=== PATIENT | female | born 1965 | race Caucasian/White ===

== ENCOUNTER 2016-09-17 13:39 | Emergency (ER) | payer MEDICARE, MEDICAID ==
[2016-09-17 13:50] VITALS: BP 145/78
--- NOTE | 2016-09-17 13:53 | ERNOTE ---
Upper Extremity HPI - General Extremities Pain Location: shoulder: left Time Seen by Provider: 09/17/16 13:42 Source: patient Exam Limitations: no limitations - Immun/Allergies/Home Medications Immunizations: IMMUNIZATION HX Immunizations Up to Date Yes History of Influenza Vaccine Yes Hx Pneumococcal Vaccination Yes Allergies/Adverse Reactions: Allergies Allergy/AdvReac Type Severity Reaction Status Date / Time erythromycin base Allergy Verified 12/25/14 09:19 [Erythromycin Base] propranolol Allergy Verified 12/25/14 09:19 Sulfa (Sulfonamide Allergy Verified 12/25/14 09:19 Antibiotics) topiramate [From Topamax] Allergy Verified 12/25/14 09:19 Home Medications: HOME MEDICATIONS Esomeprazole Magnesium [Nexium 24Hr] 10 mg PO DAILY 06/23/14 [Last Taken ] Etanercept [Enbrel] 25 mg SQ Q3D 06/23/14 [Last Taken Unknown] Felodipine [Felodipine ER] 10 mg PO DAILY 06/23/14 [Last Taken 06/23/14] Leflunomide 10 mg PO DAILY 06/23/14 [Last Taken 06/23/14] Nabumetone [Relafen] 200 mg PO BID 06/23/14 [Last Taken 06/23/14] Calcium Carbonate/Vitamin D3 [Calcium 600 + D Tablet] 1 each PO DAILY 12/25/14 [ Last Taken Unknown] Calcium Citrate 200 mg PO DAILY 12/25/14 [Last Taken Unknown] Cephalexin Monohydrate [Keflex] 500 mg PO QID #40 cap 12/25/14 [Last Taken Unknown] Nonestrodone 12/25/14 [Last Taken Unknown] oxyCODONE HCL/ACETAMINOPHEN [Percocet 5 MG/325 MG] 1 tab PO Q4H PRN #20 tab [Last Taken Unknown] - History of Present Illness Narrative: Patient has pain in her left shoulder since playing a [employer] fitness game with her daughter. She denies any fall or acute injury. She has had juvenile rheumatoid arthritis since age 4. her other joint have only baseline pain Date (Duration): 09/15/16 Location of Incident: home Method of Injury: Reports: no apparent injury Loss of Consciousness: Reports: no loss of consciousness Review of Systems - Review of Systems Constitutional: Absent: recent illness, fever, chills Respiratory: Absent: shortness of breath Cardiology: Absent: chest pain, palpitations Gastrointestinal/Abdominal: Absent: nausea, vomiting, abdominal pain Genitourinary: Present: no symptoms reported Musculoskeletal: Present: See HPI Neurological: Absent: weakness, numbness - Patient's Past Medical History Patient History - Medical: Rheumatoid Arthritis Patient History - Cardiac/Respiratory: Hypertension Patient History - Cancer: No Hx of Cancer Patient History - Surgical Procedures: Orthopedic Patient History - Other: None LMP (females 10-50): Menopausal - Social History Living Situations: home Abuse History: No History of abuse Psych History: No pertinent hx Smoking Status: Never smoker Alcohol Use: occasionally Drug Use: none - Immunizations Immunizations Up to Date: Yes Hx Pneumococcal Vaccination: Yes History of Influenza Vaccine: Yes Physical Exam - Physical Exam General Appearance: Present: wd/wn, alert, no apparent distress Neck: Present: normal inspection, nontender, limited range of motion Respiratory: Present: no respiratory distress, normal breath sounds, no accessory muscle use, lungs clear Cardiovascular/Chest: Present: regular rate, rhythm, no murmur Peripheral Pulses: N=norm/S=strong/W=weak/B=bound/A=absent: Radial (L): Normal Extremity Exam: Present: normal inspection, normal except - - left shoulder mildly tender diffusely, normal range of motion Neurological Exam: Present: alert, oriented, normal mood/affect, no motor/ sensory deficits Skin Exam: Present: normal color, warm/dry ED Progress - Vital Signs Patient's Vital Signs:: I have reviewed the patient's vital signs. Vital Signs: Vital Signs 09/17/16 13:45 Temperature 36.2 C L Pulse Rate 85 Respiratory 16 Rate Blood Pressure 145/78 O2 Sat by Pulse 98 Oximetry - X-Ray X-Ray #1 X-Ray: shoulder - no acute bony injury Interpretation: Interp. by me - Progress/Reassessment Progress Note-Subjective: 09/17/16 13:58 discussed pain medication, as patient is planing on driving will hold off on narcotic 09/17/16 14:34 discussed results with patient Departure Clinical Impression: Sprain of shoulder, left Qualifiers: Encounter type: initial encounter Shoulder sprain type: unspecified sprain Qualified Code(s): S43.402A - Unspecified sprain of left shoulder joint, initial encounter - Departure Disposition: Home self-care Condition: Good Instructions: Shoulder Pain, [id number] Additional Instructions: take your regular pain medications and the percocet as needed in addition if your pain does not improve over the next few days call vinod Taylor or your paver installer for follow up Referrals: Britton Taylor DO [Primary Care Provider] - Prescriptions: oxyCODONE HCL/ACETAMINOPHEN [Percocet 5 MG/325 MG] 1 tab PO Q4H PRN #20 tab PRN Reason: Pain
--- OUTSIDE RECORDS SUMMARY | 2016-09-17 13:58 | XMS REPORT | Continuity of Care Document ---
:1965 Author Organization [facility] ([facility]) Address [address] [place] [address] Phone [phone] Care Team Providers Name Role Phone Britton Taylor Primary Care Provider [phone] Source Comments This disclosure is being made pursuant to the Care Everywhere program, applicable federal and state laws, and may not contain all informaitonavailable regarding this patient.[facility] ([facility]) Active Allergies and Adverse Reactions Allergen Noted Date Severity Reactions Comments Erythromycin Asthma,Stomach Pain Propranolol 02/12/2015 Hypertension Sulfadoxine Urticaria (Hives) Current Medications Prescription Sig. Disp. Refills Start End Date Status Date cholecalciferol take 1,000 Units Active (VITAMIN D) 1,000 by mouth daily. 8 unit Tab esomeprazole Take 40 mg by Active (NEXIUM) 40 mg EC mouth daily. capsule multivitamin with Take 1 Tab by Active minerals tablet mouth daily. sennosides 8.6 mg Take 1 Tab by 60 Tab 1 Active tablet mouth 2 times 5 daily as needed. Indications: CONSTIPATION AMOXICILLIN 500 mg Active capsule 5 NORETHINDRONE 5 mg Take 2.5 mg by Active tablet mouth daily For 10 5 consecutive days each month FELODIPINE 10 mg XR Take 10 mg by Active tablet mouth daily 5 acetaminophen 500 Take 1,000 mg by Active mg tablet mouth every 6 hours as needed predniSONE 5 mg Take 1-2 tablets 60 tablet 2 Active tablet (5-10 mg total) by 6 mouth daily. nabumetone 500 mg Take 2 tablets 120 tablet 11 Active tablet (1,000 mg total) 6 by mouth at bedtime. leflunomide 20 mg Take 1 tablet (20 90 tablet 0 Active tablet mg total) by mouth 7 daily. etanercept (ENBREL) Inject 1 mL (25 mg 8 Each 12 Active 25 mg (1 mL) total) 7 injection subcutaneously 2 times weekly. etanercept (ENBREL) Inject 25 mg 8 Each 12 08/22/19 Discontinued 25 mg (1 mL) subcutaneously 2 6 17 injection times weekly. zoster vaccine-live Inject 0.65 mL 0.65 mL 0 08/23/19 Discontinued (ZOSTAVAX) 19,400 subcutaneously 6 17 unit injection once. etanercept (ENBREL) Inject 1 mL (25 mg 8 Each 12 08/23/19 Discontinued 25 mg (1 mL) total) 7 17 injection subcutaneously 2 times weekly. 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 Rx history: methotrexate for many years and stopped in 01/2008 for cough/pulmonary problem. hydroxychloroquine for many years dc'd 06/2014 p eye exam showing retinal concerns. etanercept (Enbrel) 08/2004 - leflunomide 11/2008 - (lab order renewed for 2012) Resolved Problems Problem Noted Date Resolved Date Left hip pain 12/19/2012 03/24/2013 Most Recent Encounters Date Type Specialty Providers Description 08/21/2016 Refill Med Rheumatology Kimani Ferreira PA-C Dx: Polyarticular juvenile idiopathic arthritis (Primary Dx) 08/17/2016 Telephone Med Rheumatology Kimani Ferreira PA-C Chief Comp: Need Prior Authorization 08/02/2016 Orders/Notes Med Rheumatology Kimani Ferreira PA-C Dx: Polyarticular juvenile idiopathic arthritis (Primary Dx) Immunizations Name Dates Previously Given Next Due Influenza 01/21/2016 Influenza, PF 01/11/2012 Influenza, unspecified 01/29/2015,01/21/2011,01/13/2009,01/22/2008 ,02/04/2007,03/14/2006,02/22/2005 Novel Inluenza H1N1, unspecified 04/07/2009 Pneumococcal, unspecified 09/05/2004 Social History Tobacco Use Types Packs/Day Years Used Date Never Smoker Smokeless Tobacco: Never Used Tobacco Cessation:Counseling Given: Yes Comments: Alcohol Use Drinks/Week oz/Week Comments No Rare Last Filed Vital Signs Vital Sign Reading Time Taken Blood Pressure 116/65 03/21/2016 1:05 PM COSTING MANAGER Pulse 70 03/21/2016 1:05 PM COSTING MANAGER Temperature 36.4 C (97.5 F) 03/21/2016 1:05 PM COSTING MANAGER Respiratory Rate 18 06/23/2014 6:43 PM COSTING MANAGER Height 1.651 m (5' 5") 03/21/2016 1:05 PM COSTING MANAGER Weight 65.1 kg (143 lb 8.3 oz) 03/21/2016 1:05 PM COSTING MANAGER Body Mass Index 23.88 03/21/2016 1:05 PM COSTING MANAGER Oxygen Saturation 97% 06/23/2014 6:43 PM COSTING MANAGER Plan of Care Date Type Specialty Providers Description 10/20/2016 Appointment Med Rheumatology Default, Other Billg - [facility] [address] [place] [address] [phone] (Fax) Subj: Appointment Uyen Belcher MD [address] [place] [address] [phone] (Fax) Rescheduled Health Maintenance Due Date Last Done Comments Hepatitis B Vaccine (1 of 3 1965 - Primary Series) Tdap Vaccine 1976 Lipid Disorder Screening 1983 MMR Vaccine 1983 Td Vaccine 1983 Cervical Cancer Screening 11/30/2002 12/01/1999, Additional history exists 02/14/1999, 10/04/1998 Colonoscopy 2015 Mammogram 08/26/2015 08/25/2014, 08/25/2014 (Previously completed) Influenza Vaccine: Seasonal Addressed 01/21/2016, Overridden with the 01/29/2015, intention of not 01/06/2015 completing the topic, (Previously Additional history exists completed) Results from Last 3 Months EXTERNAL MISCELLANEOUS LAB (08/23/2016)Only the most recent of2 resultswithin the time period is included. Component Value Range Ext WBC Count 5.1 4.0-10.5 K/MM3 Ext Hemoglobin 12.5 12.5-16.0 G/DL Ext MCV (Mean Corpuscular Volume) 87.7 78-100 fl Ext Platelet Count 211 150-450 K/MM3 Ext Creatinine 1.26 0.4-1.4 MG/DL Ext Albumin 3.5 3.4-5.0 G/DL Ext ALT 23 19-67 U/L Ext AST 24 0-48 U/L
== END 2016-09-17 14:35 | disposition home or self-care (01) ==
LOC: ER 13:39
DX: S43.402A Unspecified sprain of left shoulder joint, initial encounter (principal); Y93.C2 Activity, hand held interactive electronic device; Y92.009 Unspecified place in unspecified non-institutional (private) residence as the place of occurrence of the external cause

== ENCOUNTER 2016-12-02 21:25 | Emergency (ER) | payer MEDICARE, MEDICAID ==
[2016-12-02 21:45] VITALS: BP 173/87
[2016-12-02] MEDS ORDERED: IBUPROFEN 600 MG TABLET PO ONE (22:01)
--- NOTE | 2016-12-02 22:05 | ERNOTE ---
Lower Extremity HPI - Narrative Date of Service: 12/02/16 - General Lower Extremities Pain: knee: left, 2nd toe: right Time Seen by Provider: 12/02/16 21:52 - Immun/Allergies/Home Medications Immunizations: IMMUNIZATION HX Immunizations Up to Date Yes History of Influenza Vaccine Yes Hx Pneumococcal Vaccination Yes Allergies/Adverse Reactions: Allergies Allergy/AdvReac Type Severity Reaction Status Date / Time erythromycin base Allergy Verified 12/02/16 21:45 [Erythromycin Base] propranolol Allergy Verified 12/02/16 21:45 Sulfa (Sulfonamide Allergy Verified 12/02/16 21:45 Antibiotics) topiramate [From Topamax] Allergy Verified 12/02/16 21:45 Home Medications: HOME MEDICATIONS Esomeprazole Magnesium [Nexium 24Hr] 10 mg PO DAILY 06/23/14 [Last Taken ] Etanercept [Enbrel] 25 mg SQ Q3D 06/23/14 [Last Taken Unknown] Felodipine [Felodipine ER] 10 mg PO DAILY 06/23/14 [Last Taken 06/23/14] Leflunomide 10 mg PO DAILY 06/23/14 [Last Taken 06/23/14] Nabumetone [Relafen] 200 mg PO BID 06/23/14 [Last Taken 06/23/14] Calcium Carbonate/Vitamin D3 [Calcium 600 + D Tablet] 1 each PO DAILY 12/25/14 [ Last Taken Unknown] Calcium Citrate 200 mg PO DAILY 12/25/14 [Last Taken Unknown] Cephalexin Monohydrate [Keflex] 500 mg PO QID #40 cap 12/25/14 [Last Taken Unknown] Nonestrodone 12/25/14 [Last Taken Unknown] oxyCODONE HCL/ACETAMINOPHEN [Percocet 5 MG/325 MG] 1 tab PO Q4H PRN #20 tab [Last Taken Unknown] - History of Present Illness Narrative: This is a 51-year-old female who suffered a mechanical fall. She says that her right foot got caught as she was walking and she stumbled. She says that her toes on the right foot bent under the foot and she landed on her left knee. She is complaining of pain to her right second toe and a bit of pain to her left knee she did not hit her head she did not lose consciousness she did not get dizzy she does not have any complaints other than those listed above. She has no abrasions. She has been walking and bearing weight without difficulty. She says really that of january that hurts the most and she just wanted to have her knee looked at while she was here. Review of Systems - Review of Systems Constitutional: Present: no symptoms reported EYE: Present: no symptoms reported ENT: Present: no symptoms reported Respiratory: Present: no symptoms reported Cardiology: Present: no symptoms reported Gastrointestinal/Abdominal: Present: no symptoms reported Genitourinary: Present: no symptoms reported Musculoskeletal: Present: See HPI, joint pain Neurological: Present: no symptoms reported Endocrine: Present: no symptoms reported Hematologic/Lymphatic: Present: no symptoms reported Psych: Present: no symptoms reported All Other Systems: All systems neg except as marked - Patient's Past Medical History Patient History - Medical: Rheumatoid Arthritis Patient History - Cardiac/Respiratory: Hypertension Patient History - Cancer: No Hx of Cancer Patient History - Surgical Procedures: Total Knee Replacement, Orthopedic Patient History - Other: None LMP (females 10-50): Menopausal - Social History Living Situations: home Abuse History: No History of abuse Psych History: No pertinent hx Alcohol Use: occasionally Drug Use: none - Immunizations Immunizations Up to Date: Yes Hx Pneumococcal Vaccination: Yes History of Influenza Vaccine: Yes Physical Exam - Physical Exam General Appearance: Present: wd/wn, alert, no apparent distress Head Exam: Present: normal inspection, no evidence of injury Eye Exam: Normal inspection: bilateral, PERRL: bilateral, EOMI: bilateral Ears, Nose, Throat: Present: normal ENT inspection, normal pharynx Neck: Present: normal inspection, nontender Respiratory: Present: no respiratory distress, normal breath sounds, no accessory muscle use, chest nontender, lungs clear Cardiovascular/Chest: Present: regular rate, rhythm, no murmur, normal peripheral pulses Gastrointestinal/Abdominal: Present: normal bowel sounds, nontender, nondistended, soft, no organomegaly Back Exam: Present: normal inspection, no CVA tenderness Extremity Exam: Present: other - patient has a very mild amount of swelling near the medial collateral ligament of the left knee. No tenderness to palpation. Anterior drawer is negative. No pain with valgus or varus stresses. Patient has bruising to the second toe of the right foot. She has postoperative changes to the third toe. She has some point tenderness along the proximal phalanx of the second toe. No pain to palpation of toes 1, 3, 4, 5. Neurological Exam: Present: alert, oriented, normal mood/affect, no motor/ sensory deficits Skin Exam: Present: normal color, warm/dry Lymphatic Exam: Present: no adenopathy ED Progress - Vital Signs Patient's Vital Signs:: I have reviewed the patient's vital signs. Vital Signs: Vital Signs 12/02/16 21:39 Temperature 36.9 C Pulse Rate 71 Respiratory 16 Rate Blood Pressure 173/87 - X-Ray X-Ray #1 X-Ray: foot Interpretation: Interp. by me X-ray Comments: Fracture, chronic changes. - Progress/Reassessment Chief Complaint: Lower Extremity Pain/ Injury Departure Clinical Impression: Strain of toe - Departure Disposition: Home self-care Condition: Stable Instructions: WILMAR for Routine Care of Injuries, [id number] Additional Instructions: As we discussed, the x-ray does not demonstrate anything broken. I suspect that he simply have a bruise with perhaps an overly stretched ligament, this is called a sprain. He continues anti-inflammatory medicines like ibuprofen or Naprosyn to help with symptoms. There is no indication for x-rays of your left knee. Certainly if he is still having symptoms in 48 hours or develop anything new or concerning he should return to the ER otherwise follow-up with her family doctor. Referrals: Britton Taylor DO [Primary Care Provider] -
[2016-12-02] MEDS ORDERED: IBUPROFEN 600 MG TABLET ONE (22:19)
== END 2016-12-02 22:35 | disposition home or self-care (01) ==
LOC: ER 21:25
DX: S96.911A Strain of unspecified muscle and tendon at ankle and foot level, right foot, initial encounter (principal); W01.0XXA Fall on same level from slipping, tripping and stumbling without subsequent striking against object, initial encounter; Y93.01 Activity, walking, marching and hiking; Y92.9 Unspecified place or not applicable

== ENCOUNTER 2017-05-07 11:42 | Emergency (ER) | payer MEDICARE, MEDICAID ==
[2017-05-07] MEDS ORDERED: ACETAMINOPHEN 325 MG TABLET PO ONE (12:13)
[2017-05-07] MEDS ORDERED: ACETAMINOPHEN 325 MG TABLET ONE (12:17)
--- NOTE | 2017-05-07 12:36 | ERNOTE ---
Medical Problem HPI - General Chief Complaint: Dizziness Time Seen by Provider: 05/07/17 12:00 Source: patient Exam Limitations: no limitations - Immun/Allergies/Home Medications Immunizations: IMMUNIZATION HX Immunizations Up to Date Yes History of Influenza Vaccine Yes Hx Pneumococcal Vaccination Yes Allergies/Adverse Reactions: Allergies erythromycin base [Erythromycin Base] Allergy (Verified 05/07/17 11:51) propranolol Allergy (Verified 05/07/17 11:51) Sulfa (Sulfonamide Antibiotics) Allergy (Verified 05/07/17 11:51) topiramate [From Topamax] Allergy (Verified 05/07/17 11:51) Home Medications: HOME MEDICATIONS Esomeprazole Magnesium [Nexium 24Hr] 10 mg PO DAILY 06/23/14 [Last Taken ] Etanercept [Enbrel] 25 mg SQ Q3D 06/23/14 [Last Taken Unknown] Felodipine [Felodipine ER] 10 mg PO DAILY 06/23/14 [Last Taken 06/23/14] Leflunomide 10 mg PO DAILY 06/23/14 [Last Taken 06/23/14] Nabumetone [Relafen] 200 mg PO BID 06/23/14 [Last Taken 06/23/14] Calcium Carbonate/Vitamin D3 [Calcium 600 + D Tablet] 1 each PO DAILY 12/25/14 [ Last Taken Unknown] Calcium Citrate 200 mg PO DAILY 12/25/14 [Last Taken Unknown] Nonestrodone 12/25/14 [Last Taken Unknown] oxyCODONE HCL/ACETAMINOPHEN [Percocet 5 MG/325 MG] 1 tab PO Q4H PRN #20 tab [Last Taken Unknown] - History of Present History Narrative: Patient thinks that she might have the flu. Her had fever,cough and body aches nine days ago, has recovered, no official diagnosis made. Patient states that she has had body aches since yesterday. She is taking nabumetone for RA. Yesterday she vomited twice, has been able to eat and drink, still feels nauseated at times. This morning (03:00) she got up to go to the bathroom and on the way back she got dizzy and fell, was able to pull herself up again, no dizziness since. Date (Duration): 05/05/17 Review of Systems - Review of Systems Constitutional: Present: chills, malaise. Absent: recent illness ENT: Present: nasal drainage. Absent: ear pain, sore throat Respiratory: Present: cough - slight, dry. Absent: shortness of breath Cardiology: Absent: chest pain, palpitations Gastrointestinal/Abdominal: Present: See HPI. Absent: abdominal pain Genitourinary: Present: no symptoms reported Musculoskeletal: Present: muscle pain Neurological: Absent: headache - Patient's Past Medical History Patient History - Medical: Rheumatoid Arthritis Patient History - Cardiac/Respiratory: Hypertension Patient History - Cancer: No Hx of Cancer Patient History - Surgical Procedures: Total Knee Replacement, Orthopedic Patient History - Other: None - Social History Living Situations: home Abuse History: No History of abuse Psych History: No pertinent hx Alcohol Use: none Drug Use: none - Immunizations Immunizations Up to Date: Yes Hx Pneumococcal Vaccination: Yes History of Influenza Vaccine: Yes Physical Exam - Physical Exam General Appearance: Present: wd/wn, alert, no apparent distress Head Exam: Present: normal inspection Eye Exam: Normal inspection: bilateral Ears, Nose, Throat: Present: normal ENT inspection, abnormal TM (R) - dull, abnormal TM (L) - dull, normal pharynx Respiratory: Present: no respiratory distress, normal breath sounds, no accessory muscle use, lungs clear Cardiovascular/Chest: Present: regular rate, rhythm, no murmur Gastrointestinal/Abdominal: Present: normal bowel sounds, nondistended, soft, tenderness - mild lower Extremity Exam: Present: no edema Neurological Exam: Present: alert, oriented, normal mood/affect Skin Exam: Present: normal color, warm/dry ED Progress - Results and Orders Patient's Lab Results:: I have reviewed the patient's lab results. - Vital Signs Patient's Vital Signs:: I have reviewed the patient's vital signs. Vital Signs: Vital Signs 05/07/17 05/07/17 11:47 11:51 Temperature 36.9 C 36.9 C Pulse Rate 95 95 Respiratory 12 12 Rate Blood Pressure 132/98 132/98 O2 Sat by Pulse 100 100 Oximetry - Progress/Reassessment Chief Complaint: Dizziness Progress Note-Subjective: 05/07/17 12:30 discussed negative influenza test and that there is still a chance that she could have influenza, will get further labs as patient has RA and is immuncompromized from her medications 05/07/17 13:[address] Taylor, patient has increased BUN/creatine, okay to agressively oraly hydrate, stop nabumetone recheck labs tomorrow 05/07/17 13:30 discussed plan with patient and Departure Clinical Impression: Viral infection Renal failure Qualifiers: Renal failure chronicity: acute Acute renal failure type: unspecified Qualified Code(s): N17.9 - Acute kidney failure, unspecified - Departure Disposition: Home self-care Condition: Stable Instructions: Dehydration, Adult, [id number], Upper Respiratory Infection, Adult, [id number] Additional Instructions: drink at least 2-3 quarts of water do not take any of the nabumetone till told to b your doctor as it can make your kidney function worse have out patient lab test done tomorrow Referrals: Britton Taylor, [Primary Care Provider] -
[2017-05-07 12:40] LABS: Hemoglobin 14.2 gm/dL (12.5-16.0); Mean Cell Volume 83.5 fl (78-100); Mean Corpuscular Hemoglobin 27.6 pg (27-31); Mean Platelet Volume 10.8 fl (6.0-9.5); Neutrophil # 3.6 K/mm3 (1.3-6.0); Neutrophil % 64.3 % (42-75.0); Platelet Count 255 K/mm3 (150-450); Red Blood Count 5.15 M/mm3 (4.2-5.4); Red Cell Distribution Width 12.5 % (11.5-14.0); White Blood Count 5.6 K/mm3 (4.0-10.5)
[2017-05-07 12:51] LABS: Albumin * 4.1 gm/dl (3.4-5.0); Anion Gap 13.7 mmol/L (6.8-13.8); BUN/Creatinine Ratio 12.7 (9.0-21.6); Bilirubin, Total 1.1 mg/dL (0.0-1.1); Ca. Corrected For Albumin 9.8 mg/dL (8.4-10.2); Calcium * 10.2 mg/dL (7.9-10.9); Carbon Dioxide 28.7 mmol/L (24-32.6); Potassium 5.4 mmol/L (3.4-4.6); Total Protein 9.2 gm/dL (6.2-8.2)
[2017-05-07 13:28] VITALS: BP 104/66
== END 2017-05-07 13:41 | disposition home or self-care (01) ==
LOC: ER 11:42
DX: B34.9 Viral infection, unspecified (principal); N17.9 Acute kidney failure, unspecified; I10 Essential (primary) hypertension